=== PATIENT | male | born 1990 | race Caucasian/White ===

== ENCOUNTER 2018-06-12 08:30 | Emergency (ER) | payer OTHER ==
--- NOTE | 2018-06-12 08:53 | ED Physician Documentation ---
History of Present Illness - Stated complaint Stated Complaint: SIDE PX/VOMITING BLOOD IN URINE - Chief complaint Chief Complaint: Abd Pain - History obtained from History obtained from: Patient - History of Present Illness Pain level max: 3 - Additonal information Additional information: Patient is a previously healthy 28-year-old male presenting with several days of worsening right-sided flank and lower abdominal pain associated with hematuria. Patient denies fever, chills, nausea, vomiting, or stool changes. Patient reports that he is otherwise been in his normal state of health except for mild cold symptoms. Patient states that symptoms are waxing and waning. No particular worsening or improving Factors noted. Review of Systems Constitutional: denies: Fever GI: reports: Abdominal Pain : reports: Hematuria PD PAST MEDICAL HISTORY - Past Medical History Past Medical History: Yes Derm: Eczema - Past Surgical History Past Surgical History: No - Present Medications Home Medications: Ambulatory Orders Medication Instructions Recorded Confirmed Hydrocodone/Acetaminophen [[place] 1 each PO Q4HR #15 tablet 06/12/18 5-325 Tablet] Ondansetron Odt [Zofran] 4 mg TL Q6H PRN #10 tablet 06/12/18 Tamsulosin HCl [Flomax] 0.4 mg PO DAILY #30 cap.er.24h 06/12/18 - Allergies Allergies/Adverse Reactions: Allergies Allergy/AdvReac Type Severity Reaction Status Date / Time codeine Allergy Hives Verified 06/12/18 08:52 - Social History Does the pt smoke?: No Smoking Status: Never smoker Does the pt drink ETOH?: No Does the pt have substance abuse?: No - Immunizations Immunizations are current?: Yes - POLST Patient has POLST: No PD ED PE NORMAL - General General: Alert and oriented X 3, No acute distress, Well developed/nourished - HEENT HEENT: Atraumatic - Cardiac Cardiac: RRR, No murmur - Respiratory Respiratory: No respiratory distress, Clear bilaterally - Abdomen Abdomen: Normal bowel sounds, Soft, Non tender, Non distended - Back Back: Other. No: No CVA TTP (Mild right CVA tenderness) - Derm Derm: Normal color, Warm and dry, No rash - Extremities Extremities: No deformity - Neuro Neuro: Alert and oriented X 3, No motor deficit, No sensory deficit - Psych Psych: Normal mood, Normal affect Results - Vitals Vitals: Vital Signs - 24 hr 06/12/18 06/12/18 08:50 09:45 Temperature 36.5 C Heart Rate 86 67 Respiratory 18 18 Rate Blood Pressure 146/94 H 132/93 H O2 Saturation 96 98 Oxygen O2 Source Room air - Labs Labs: Laboratory Tests 06/12/18 06/12/18 06/12/18 08:59 09:42 09:42 WBC 5.9 RBC 5.26 Hgb 14.2 Hct 42.1 MCV 80.1 MCH 26.9 L MCHC 33.6 RDW 14.6 Plt Count 190 MPV 8.4 Neut # (Auto) 4.0 Lymph # (Auto) 1.2 L [place] # (Auto) 0.4 Eos # (Auto) 0.2 Baso # (Auto) 0.1 Absolute Nucleated RBC 0.01 Nucleated RBC % 0.1 Sodium 137 Potassium 4.2 Chloride 103 Carbon Dioxide 27 Anion Gap 7.0 BUN 11 Creatinine 1.0 Estimated GFR (MDRD) 88 L Glucose 100 Calcium 9.2 Total Bilirubin 0.5 AST 31 ALT 43 Alkaline Phosphatase 67 Total Protein 7.8 Albumin 4.4 Globulin 3.4 Albumin/Globulin Ratio 1.3 Lipase 40 Urine Color YELLOW Urine Clarity SL. CLOUDY Urine pH 6.0 Ur Specific [place] 1.025 Urine Protein NEGATIVE Urine Glucose (UA) NEGATIVE Urine Ketones NEGATIVE Urine Occult Blood LARGE H Urine Nitrite NEGATIVE Urine Bilirubin NEGATIVE Urine Urobilinogen 0.2 (NORMAL) Ur Leukocyte Esterase NEGATIVE Urine RBC 11-25 H Urine WBC 0-3 Ur Squamous Epith Cells RARE Squamous Urine Bacteria None Seen Ur Microscopic Review INDICATED Urine Culture Comments NOT INDICATED PD MEDICAL DECISION MAKING - ED course Complexity details: reviewed results, re-evaluated patient, considered differential, d/w patient ED course: Most concerning for nephrolithiasis, UTI, but also consider other etiologies such as pyelonephritis, liver disease, appendicitis, gallbladder disease, small bowel obstruction, diverticulitis, AAA, but feel much less likely. Vital signs within normal limits upon arrival. Patient comfortable declined pain medication at this time. We will start IV fluid, as well as obtain urine and blood work samples. Also ordered CT imaging to further evaluate for likely kidney stone.Screening lab work and urinalysis returned relatively unremarkable except for presence of blood in the urine. No signs of infection or other complicating factors. CT imaging found evidence of nonobstructing stone on the right, as well as a small stone on the left. Stone on the right appears to be moving without issue. At this time, I feel the patient is safe to discharge home with appropriate pain and nausea medications, as well as Flomax. Patient can follow- up with his primary care physician and urology as an outpatient. Discussed results and recommendations with patient, who is comfortable with this discharge plan. Departure - Departure Disposition: 01 Home, Self Care Clinical Impression: Kidney stones Condition: Good Instructions: Kidney Stones Follow-Up: JULIA KAUFMAN [Primary Care Provider] - Within 3 Days Prescriptions: Hydrocodone/Acetaminophen [[place] 5-325 Tablet] 1 each PO Q4HR #15 tablet Ondansetron Odt [Zofran] 4 mg TL Q6H PRN #10 tablet PRN Reason: Nausea / Vomiting Tamsulosin HCl [Flomax] 0.4 mg PO DAILY #30 cap.er.24h Comments: Please use medications as prescribed to help control nausea, pain, and help with passage of kidney stones. Also recommend hydration and follow-up with your primary care physician next 2-3 days. If you continue to experience symptoms or other complications from kidney stones, recommend follow-up with urologist. If you have worsening symptoms or other concerns, always feel free to return to the ED as well.
[2018-06-12] MEDS ORDERED: SODIUM CHLORIDE 0.9% 1,000 ML IV ONE (09:09)
[2018-06-12 09:10] LABS: BILIRUBIN,URINE NEGATIVE (NEGATIVE); GLUCOSE, URINE (UA) NEGATIVE (NEGATIVE); KETONES,URINE (UA) NEGATIVE (NEGATIVE); LEUKOCYTE ESTERASE, URINE NEGATIVE (NEGATIVE); NITRITE,URINE NEGATIVE (NEGATIVE); OCCULT BLOOD,URINE LARGE (NEGATIVE); PROTEIN,URINE NEGATIVE (NEGATIVE); UROBILINOGEN,URINE 0.2 (NORMAL) E.U./dL (NORMAL)
[2018-06-12 09:23] LABS: CLARITY,URINE SL. CLOUDY (CLEAR)
[2018-06-12 09:24] LABS: BACTERIA,URINE None Seen /HPF (None Seen); SQUAMOUS EPITHELIAL CELL,UR RARE Squamous (<= Few)
--- NOTE | 2018-06-12 09:49 | CT Report ---
Reason: right CVA and abd pain Procedure Date: 06/12/2018 Accession Number: [id number] / [id number] Procedure: CT - Abdomen/Pelvis WO CPT Code: FULL RESULT: EXAM: CT ABDOMEN AND PELVIS (CT KUB) EXAM DATE: 06/12/2018 09:26 AM. CLINICAL HISTORY: Right CVA and abd pain. COMPARISONS: None. TECHNIQUE: Routine axial helical CT imaging was performed through the abdomen and pelvis without IV contrast. Reconstructions: Coronal and sagittal. In accordance with CT protocol optimization, one or more of the following dose reduction techniques were utilized for this exam: automated exposure control, adjustment of mA and/or KV based on patient size, or use of iterative reconstructive technique. FINDINGS: Lung Bases: Unremarkable. Right Kidney/Ureter: No intrarenal calculi. There is a 3 mm calculus at the proximal ureter near the UPJ with associated mild hydronephrosis. No perinephric stranding. No ureteral dilatation distal to the calculus. Left Kidney/Ureter: 5 mm nonobstructing intrarenal calculus. No hydronephrosis, hydroureter or perinephric stranding. Other Solid Organs: Noncontrast images of the solid organs are grossly unremarkable. Gallbladder/Bile Ducts: Unremarkable. Peritoneal Cavity: No free fluid, free air or glo adenopathy. Bowel is grossly unremarkable. The appendix appears normal. Pelvic Organs: No bladder stones or wall thickening. Noncontrast images of the visualized pelvic organs are unremarkable. Vasculature: Unremarkable. Other: None. IMPRESSION: 1. Proximal right ureteral 3 mm calculus near the UPJ with associated mild right hydronephrosis. 2. Nonobstructing left renal 5 mm calculus. RADIA
[2018-06-12 09:51] LABS: BASOPHILS # (AUTO) 0.1 10^3/uL (0.0-0.1); BASOPHILS % (AUTO) 1.9 %; EOSINOPHILS # (AUTO) 0.2 10^3/uL (0.0-0.7); EOSINOPHILS % (AUTO) 3.9 %; HGB - HEMOGLOBIN 14.2 g/dL (14.0-18.0); LYMPHOCYTES # (AUTO) 1.2 10^3/uL (1.5-3.5); LYMPHOCYTES % (AUTO) 19.8 %; MEAN CORPUSCULAR HEMOGLOBIN 26.9 pg (27.0-31.0); MEAN CORPUSCULAR HGB CONC 33.6 g/dL (32.0-36.0); MEAN CORPUSCULAR VOLUME 80.1 fL (80.0-94.0); MEAN PLATELET VOLUME 8.4 fL (7.4-11.4); MONOCYTES # (AUTO) 0.4 10^3/uL (0.0-1.0); MONOCYTES % (AUTO) 6.4 %; PLT - PLATELET COUNT 190 10^3/uL (130-450); RED BLOOD COUNT 5.26 10^6/uL (4.70-6.10); RED CELL DISTRIBUTION WIDTH 14.6 % (12.0-15.0); WHITE BLOOD COUNT 5.9 x10^3/uL (4.8-10.8)
[2018-06-12 10:08] LABS: ALBUMIN 4.4 g/dL (3.2-5.5); ALBUMIN/GLOBULIN RATIO 1.3 (1.0-2.2); BILIRUBIN,TOTAL 0.5 mg/dL (0.2-1.0); CALCIUM 9.2 mg/dL (8.5-10.3); TOTAL PROTEIN 7.8 g/dL (6.7-8.2)
[2018-06-12 10:52] VITALS: BP 140/94
== END 2018-06-12 10:52 | disposition home or self-care (01) ==
LOC: ED 08:30
DX: N13.2 Hydronephrosis with renal and ureteral calculous obstruction (principal)
CPT/HCPCS: 36415; 74176; 80053; 81001; 81003; 83690; 85025; 87086; 96360; 99283; 99284

== ENCOUNTER 2018-07-02 17:47 | Emergency (ER) | payer OTHER ==
[2018-07-02 18:50] LABS: BILIRUBIN,URINE NEGATIVE (NEGATIVE); GLUCOSE, URINE (UA) NEGATIVE (NEGATIVE); KETONES,URINE (UA) 15 mg/dL (NEGATIVE); LEUKOCYTE ESTERASE, URINE NEGATIVE (NEGATIVE); NITRITE,URINE NEGATIVE (NEGATIVE); OCCULT BLOOD,URINE TRACE-INTA (NEGATIVE); PROTEIN,URINE NEGATIVE (NEGATIVE); UROBILINOGEN,URINE 0.2 (NORMAL) E.U./dL (NORMAL)
[2018-07-02 18:50] LABS: BASOPHILS # (AUTO) 0.1 10^3/uL (0.0-0.1); BASOPHILS % (AUTO) 0.7 %; EOSINOPHILS # (AUTO) 0.1 10^3/uL (0.0-0.7); EOSINOPHILS % (AUTO) 0.8 %; LYMPHOCYTES # (AUTO) 0.9 10^3/uL (1.5-3.5); LYMPHOCYTES % (AUTO) 8.2 %; MEAN CORPUSCULAR HEMOGLOBIN 26.5 pg (27.0-31.0); MEAN CORPUSCULAR HGB CONC 33.2 g/dL (32.0-36.0); MEAN CORPUSCULAR VOLUME 79.8 fL (80.0-94.0); MEAN PLATELET VOLUME 8.2 fL (7.4-11.4); MONOCYTES # (AUTO) 0.5 10^3/uL (0.0-1.0); MONOCYTES % (AUTO) 4.9 %; NEUTROPHILS # (AUTO) 9.2 10^3/uL (1.5-6.6); NEUTROPHILS % (AUTO) 85.4 %; PLT - PLATELET COUNT 206 10^3/uL (130-450); RED BLOOD COUNT 5.27 10^6/uL (4.70-6.10); RED CELL DISTRIBUTION WIDTH 14.9 % (12.0-15.0); WHITE BLOOD COUNT 10.8 x10^3/uL (4.8-10.8)
[2018-07-02 18:52] LABS: ALBUMIN 4.6 g/dL (3.2-5.5); ALBUMIN/GLOBULIN RATIO 1.4 (1.0-2.2); BILIRUBIN,TOTAL 0.8 mg/dL (0.2-1.0); CALCIUM 9.3 mg/dL (8.5-10.3); CREATININE 1.5 mg/dL (0.6-1.2); TOTAL PROTEIN 7.9 g/dL (6.7-8.2)
[2018-07-02 19:05] LABS: CLARITY,URINE CLEAR (CLEAR)
[2018-07-02] MEDS ORDERED: ONDANSETRON 4 MG/2 ML VIAL IVP STA (19:19)
[2018-07-02] MEDS ORDERED: SODIUM CHLORIDE 0.9% 2,000 ML IV ONE (19:19)
[2018-07-02] MEDS ORDERED: HYDROmorphone 1 MG/ML CARPUJECT IVP STA (19:19)
--- NOTE | 2018-07-02 19:21 | ED Physician Documentation ---
PD HPI ABD PAIN - Stated complaint Stated Complaint: ABD PX N/V - Chief complaint Chief Complaint: Abd Pain - History obtained from History obtained from: Patient - History of Present Illness Timing - onset: Today (Seen here about 3 weeks ago and had a 3 mm right proximal ureteral stone. He has had on and off persistent pain since with worsening today. It has not moved at all. He has been nauseous today and vomited despite taking Tylenol, hydrocodone and Zofran.) Review of Systems Constitutional: denies: Fever, Chills Cardiac: denies: Chest pain / pressure, Palpitations Respiratory: denies: Dyspnea, Cough PD PAST MEDICAL HISTORY - Past Medical History Derm: Eczema - Past Surgical History Past Surgical History: No - Present Medications Home Medications: Ambulatory Orders Medication Instructions Recorded Confirmed Hydrocodone/Acetaminophen [[place] 1 each PO Q4HR #15 tablet 06/12/18 07/02/18 5-325 Tablet] Ondansetron Odt [Zofran] 4 mg TL Q6H PRN #10 tablet 06/12/18 07/02/18 Tamsulosin HCl [Flomax] 0.4 mg PO DAILY #30 cap.er.24h 06/12/18 07/02/18 - Allergies Allergies/Adverse Reactions: Allergies Allergy/AdvReac Type Severity Reaction Status Date / Time codeine Allergy Hives Verified 07/02/18 18:09 - Social History Does the pt smoke?: No Smoking Status: Never smoker Does the pt drink ETOH?: No Does the pt have substance abuse?: No - Immunizations Immunizations are current?: Yes - POLST Patient has POLST: No PD ED PE NORMAL - Vitals Vital signs reviewed: Yes - General General: Alert and oriented X 3, No acute distress - Abdomen Abdomen: Soft, Non tender - Back Back: No CVA TTP - Derm Derm: Normal color, Warm and dry - Extremities Extremities: No edema, No calf tenderness / cord - Neuro Neuro: Alert and oriented X 3, Normal speech Results - Vitals Vitals: Vital Signs - 24 hr 07/02/18 07/02/18 18:06 19:40 Temperature 36.6 C Heart Rate 100 98 Respiratory 20 18 Rate Blood Pressure 142/91 H 129/93 H O2 Saturation 98 100 Oxygen O2 Source Room air - Labs Labs: Laboratory Tests 07/02/18 07/02/18 07/02/18 18:30 18:35 18:35 WBC 10.8 RBC 5.27 Hgb 14.0 Hct 42.1 MCV 79.8 L MCH 26.5 L MCHC 33.2 RDW 14.9 Plt Count 206 MPV 8.2 Neut # (Auto) 9.2 H Lymph # (Auto) 0.9 L [place] # (Auto) 0.5 Eos # (Auto) 0.1 Baso # (Auto) 0.1 Absolute Nucleated RBC 0.01 Nucleated RBC % 0.0 Sodium 137 Potassium 4.0 Chloride 102 Carbon Dioxide 26 Anion Gap 9.0 BUN 16 Creatinine 1.5 H Estimated GFR (MDRD) 55 L Glucose 111 H Calcium 9.3 Total Bilirubin 0.8 AST 45 H ALT 63 H Alkaline Phosphatase 69 Total Protein 7.9 Albumin 4.6 Globulin 3.3 Albumin/Globulin Ratio 1.4 Lipase 29 Urine Color YELLOW Urine Clarity CLEAR Urine pH 8.0 H Ur Specific [place] 1.020 Urine Protein NEGATIVE Urine Glucose (UA) NEGATIVE Urine Ketones 15 H Urine Occult Blood [place]ACE[place] Urine Nitrite NEGATIVE Urine Bilirubin NEGATIVE Urine Urobilinogen 0.2 (NORMAL) Ur Leukocyte Esterase NEGATIVE Ur Microscopic Review NOT INDICATED Urine Culture Comments NOT INDICATED PD MEDICAL DECISION MAKING - ED course ED course: 28-year-old gentleman with persistent renal colic. Blood work shows mild elevation of creatinine and liver enzymes. Urinalysis is unremarkable except for ketonuria. He is administered 2 L of IV fluids Dilaudid and Zofran. At this point despite the relatively small stone it seems likely he will need to follow-up with urologist and was given a copy of the CAT scan from 3 weeks ago. Departure - Departure Disposition: Home, Self Care Clinical Impression: Renal colic Condition: Good Record reviewed to determine appropriate education?: Yes Instructions: ED Stone Renal W Colic Comments: Continue the Flomax. As discussed the pain medication will likely work with you need to take it a little earlier. Follow-up with your doctor on Monday, at this point for likely referral to a urologist given the persistent symptoms. The copy of the CAT scan on CD with you. Return for new or worsening symptoms.
[2018-07-02 20:28] VITALS: BP 133/87
== END 2018-07-02 20:34 | disposition home or self-care (01) ==
LOC: ED 17:47
DX: N23 Unspecified renal colic (principal); R82.4 Acetonuria
CPT/HCPCS: 36415; 80053; 81003; 83690; 85025; 96361; 96374; 99283; J1170; 81001; 87086

== ENCOUNTER 2019-08-04 11:12 | Emergency (ER) | payer OTHER ==
--- NOTE | 2019-08-04 11:41 | ED Physician Documentation ---
PD HPI ABD PAIN - Stated complaint Stated Complaint: LT SIDE PX - Chief complaint Chief Complaint: Abd Pain - History obtained from History obtained from: Patient - History of Present Illness Timing - onset: How many hours ago (couple), Today Timing - duration: Hours (2-3) Timing - details: Abrupt onset, Still present Quality: Cramping, Aching, Pain Location: LLQ Radiation: Left flank Improved by: No: Laying still, Position Worsened by: No: Moving, Breathing, Position, Palpation Associated symptoms: Nausea, Hematuria. No: Fever, Diarrhea, Constipation, Dysuria Similar symptoms before: Diagnosis (kidney stone couple years ago right side with 5 mm stone in left kidney incidentally noted at the time. Saw urologist in follow up and were just going to watch on current stone on left.) Recently seen: Not recently seen Review of Systems Constitutional: denies: Fever, Chills, Myalgias Nose: denies: Rhinorrhea / runny nose, Congestion Throat: denies: Sore throat Respiratory: denies: Cough GI: reports: Abdominal Pain, Nausea. denies: Vomiting, Constipation, Diarrhea : reports: Hematuria (this morning). denies: Dysuria Skin: denies: Abrasion (s), Laceration (s) Neurologic: denies: Near syncope PD PAST MEDICAL HISTORY - Past Medical History Cardiovascular: None Respiratory: None Neuro: None Endocrine/Autoimmune: None : Kidney stones Derm: Eczema - Past Surgical History Past Surgical History: No - Present Medications Home Medications: Ambulatory Orders Medication Instructions Recorded Confirmed Naproxen 500 mg PO BID #20 tablet 08/04/19 Ondansetron Odt [Zofran] 4 mg TL Q6H PRN #20 tablet 08/04/19 Oxycodone HCl/Acetaminophen 1 each PO Q6H PRN #20 tablet 08/04/19 [Percocet 5-325 mg Tablet] Tamsulosin [Flomax] 0.4 mg PO DAILY #7 capsule 08/04/19 dexAMETHasone [Decadron] 4 mg PO DAILY #5 tablet 08/04/19 - Allergies Allergies/Adverse Reactions: Allergies Allergy/AdvReac Type Severity Reaction Status Date / Time codeine Allergy Hives Verified 08/04/19 11:15 - Social History Does the pt smoke?: No Smoking Status: Never smoker Does the pt drink ETOH?: No Does the pt have substance abuse?: No - Immunizations Immunizations are current?: Yes - POLST Patient has POLST: No PD ED PE NORMAL - Vitals Vital signs reviewed: Yes - General General: Alert and oriented X 3, Well developed/nourished, Other (appears uncomfortable due to left sided pain) - Cardiac Cardiac: RRR, No murmur - Respiratory Respiratory: Clear bilaterally - Abdomen Abdomen: Normal bowel sounds, Soft, Non tender, Non distended, No organomegaly - Back Back: No spinal TTP, Other (left CVA tenderness) - Derm Derm: Normal color, Warm and dry - Extremities Extremities: Normal ROM s pain, No edema, No calf tenderness / cord - Neuro Neuro: Alert and oriented X 3, No motor deficit, Normal speech Results - Vitals Vitals: Vital Signs - 24 hr 08/04/19 08/04/19 08/04/19 11:16 13:18 13:46 Temperature 36.5 C Heart Rate 104 H 80 77 Respiratory 17 19 17 Rate Blood Pressure 146/86 H 106/71 118/83 H O2 Saturation 98 96 98 Oxygen O2 Source Room air - Labs Labs: Laboratory Tests 08/04/19 11:20 Urine Color YELLOW Urine Clarity HAZ[place] Urine pH 6.5 Ur Specific [place] 1.020 Urine Protein NEGATIVE Urine Glucose (UA) NEGATIVE Urine Ketones NEGATIVE Urine Occult Blood LARGE H Urine Nitrite NEGATIVE Urine Bilirubin NEGATIVE Urine Urobilinogen 0.2 (NORMAL) Ur Leukocyte Esterase NEGATIVE Urine RBC 11-25 H Urine WBC 0-3 Ur Squamous Epith Cells NONE SEEN Urine Bacteria Rare Ur Microscopic Review INDICATED Urine Culture Comments NOT INDICATED - Rads (name of study) KUB CT Radiology: Prelim report reviewed (right proximal ureteral 5 mm stone with moderate right hydroureter and kidney), See rad report PD MEDICAL DECISION MAKING - ED course Complexity details: reviewed results (5 mm stone in proximal left ureter with mod hydroureter. ), re-evaluated patient (improved quite a bit and declines further meds after initial meds. ), considered differential, d/w patient Departure - Departure Disposition: 01 Home, Self Care Clinical Impression: Left sided abdominal pain, Ureterolithiasis Condition: Stable Record reviewed to determine appropriate education?: Yes Instructions: ED Stone Renal W Colic Follow-Up: JULIA KAUFMAN [Primary Care Provider] - Prescriptions: dexAMETHasone [Decadron] 4 mg PO DAILY #5 tablet Naproxen 500 mg PO BID #20 tablet Ondansetron Odt [Zofran] 4 mg TL Q6H PRN #20 tablet PRN Reason: Nausea / Vomiting Oxycodone HCl/Acetaminophen [Percocet 5-325 mg Tablet] 1 each PO Q6H PRN #20 tablet PRN Reason: pain Tamsulosin [Flomax] 0.4 mg PO DAILY #7 capsule Comments: Stay well-hydrated. Naproxen anti-inflammatory twice daily and Flomax for ureteral spasms. Take these regularly as prescribed. Decadron for inflammation as well. Use Tylenol in addition if needed for pains mildly or the oxycodone if needed for worse pain. You can pretreat or concurrently treat with the ondansetron to help reduce nausea of the pain medicine. Call your urologist tomorrow to set up a follow-up appointment regarding the stone. Discharge Date/Time: 08/04/19 14:02
[2019-08-04] MEDS ORDERED: ONDANSETRON 4 MG/2 ML VIAL IVP STA (12:22)
[2019-08-04] MEDS ORDERED: HYDROmorphone 1 MG/ML CARPUJECT IVP STA (12:22)
[2019-08-04] MEDS ORDERED: KETOROLAC 30 MG/ML VIAL IVP STA (12:22)
[2019-08-04 12:33] LABS: BILIRUBIN,URINE NEGATIVE (NEGATIVE); GLUCOSE, URINE (UA) NEGATIVE (NEGATIVE); KETONES,URINE (UA) NEGATIVE (NEGATIVE); LEUKOCYTE ESTERASE, URINE NEGATIVE (NEGATIVE); NITRITE,URINE NEGATIVE (NEGATIVE); OCCULT BLOOD,URINE LARGE (NEGATIVE); PH,URINE 6.5 PH (5.0-7.5); PROTEIN,URINE NEGATIVE (NEGATIVE); UROBILINOGEN,URINE 0.2 (NORMAL) E.U./dL (NORMAL)
[2019-08-04 12:34] LABS: CLARITY,URINE HAZY (CLEAR)
[2019-08-04 12:37] LABS: BACTERIA,URINE Rare /HPF (None Seen); SQUAMOUS EPITHELIAL CELL,UR NONE SEEN (<= Few)
--- NOTE | 2019-08-04 13:13 | CT Report ---
Reason: left flank and abd pain today Procedure Date: 08/04/2019 Accession Number: [id number] / [id number] Procedure: CT - Abdomen/Pelvis WO CPT Code: Final Report FULL RESULT: EXAM: CT ABDOMEN AND PELVIS (CT KUB) EXAM DATE: 08/04/2019 12:55 PM. CLINICAL HISTORY: Left flank and abd pain today. COMPARISONS: ABDOMEN/PELVIS W/O 06/12/2018 9:21 AM. TECHNIQUE: Routine axial helical CT imaging was performed through the abdomen and pelvis without IV contrast. Reconstructions: Coronal and sagittal. In accordance with CT protocol optimization, one or more of the following dose reduction techniques were utilized for this exam: automated exposure control, adjustment of mA and/or KV based on patient size, or use of iterative reconstructive technique. FINDINGS: Lung Bases: Unremarkable. Right Kidney/Ureter: No stones, hydronephrosis, or hydroureter. No perinephric fat stranding. Left Kidney/Ureter: There is mild hydroureteronephrosis secondary to a proximal ureteric stone measuring 5.7 mm. Other Solid Organs: Noncontrast images of the solid organs are grossly unremarkable. Gallbladder/Bile Ducts: Unremarkable. Peritoneal Cavity: No free fluid, free air or glo adenopathy. Bowel is grossly unremarkable. Normal appendix is visualized. Pelvic Organs: No bladder stones or wall thickening. Noncontrast images of the visualized pelvic organs are unremarkable. Vasculature: Unremarkable. Other: Probable bone island seen in the right ischial bone, stable from previous exam. IMPRESSION: 1. Mild left-sided hydroureteronephrosis secondary to a proximal ureter stone measuring up to 6 mm. 2. Unremarkable right urinary collecting system. RADIA
[2019-08-04 13:47] VITALS: BP 118/83
== END 2019-08-04 14:02 | disposition home or self-care (01) ==
LOC: ED 11:12
DX: N13.2 Hydronephrosis with renal and ureteral calculous obstruction (principal)
CPT/HCPCS: 74176; 81001; 96374; 96375; 99284; J1170; 81003; 87086

== ENCOUNTER 2019-08-24 03:56 | Emergency (ER) | payer OTHER ==
--- NOTE | 2019-08-24 04:09 | ED Physician Documentation ---
PD HPI ABD PAIN - Stated complaint Stated Complaint: L FLANK PX - Chief complaint Chief Complaint: Abd Pain - History obtained from History obtained from: Patient - History of Present Illness Timing - onset: How many weeks ago (3) Timing - details: Intermittant, Waxing and waning Pain level max: 8 Pain level now: 6 Quality: Pain Location: Other (left flank) Radiation: Left flank Improved by: Other (no ameliorating factors) Worsened by: Other (no exacerbating factors) Associated symptoms: Nausea. No: Fever, Vomiting, Diarrhea, Constipation, Dysuria, Hematuria Recently seen: Emergency Dept (T+R 08/03 for same pain, 6mm proximal left ureteral calculus with mild hydronephrosis noted at that time. Returns due to recurrent episodes of left flank pain over past week. Pain was adequately controlled with percocet, but he has run out of this medication, along with the flomax and zofran. Has upcoming appointment with urology beginning of next week) Review of Systems Constitutional: denies: Fever, Chills, Sweats Cardiac: reports: Reviewed and negative Respiratory: reports: Reviewed and negative GI: reports: Abdominal Pain (left flank), Nausea. denies: Vomiting, Constipation, Diarrhea : denies: Dysuria, Frequency, Hematuria PD PAST MEDICAL HISTORY - Past Medical History Past Medical History: Yes Cardiovascular: None Respiratory: None Neuro: None Endocrine/Autoimmune: None GI: None : Kidney stones HEENT: None Psych: None Musculoskeletal: None Derm: Eczema - Past Surgical History Past Surgical History: No - Present Medications Home Medications: Ambulatory Orders Medication Instructions Recorded Confirmed Naproxen 500 mg PO BID #20 tablet 08/04/19 Ondansetron Odt [Zofran] 4 mg TL Q6H PRN #20 tablet 08/04/19 Oxycodone HCl/Acetaminophen 1 each PO Q6H PRN #20 tablet 08/04/19 [Percocet 5-325 mg Tablet] Tamsulosin [Flomax] 0.4 mg PO DAILY #7 capsule 08/04/19 dexAMETHasone [Decadron] 4 mg PO DAILY #5 tablet 08/04/19 Ondansetron Odt [Zofran Odt] 4 mg TL Q6H PRN #14 tablet 08/24/19 Tamsulosin [Flomax] 0.4 mg PO DAILY #7 capsule 05/30/20 oxyCODONE [Roxicodone] 5 - 10 mg PO Q6H PRN #20 tablet 08/24/19 - Allergies Allergies/Adverse Reactions: Allergies Allergy/AdvReac Type Severity Reaction Status Date / Time codeine Allergy Hives Verified 08/24/19 04:06 - Social History Does the pt smoke?: No Smoking Status: Never smoker Does the pt drink ETOH?: No Does the pt have substance abuse?: No - Immunizations Immunizations are current?: Yes - POLST Patient has POLST: No PD ED PE NORMAL - Vitals Vital signs reviewed: Yes - General General: Alert and oriented X 3, Well developed/nourished, Other (waxing and waning obvious painful distress) - HEENT HEENT: Moist mucous membranes - Cardiac Cardiac: RRR, No murmur - Respiratory Respiratory: No respiratory distress, Clear bilaterally - Abdomen Abdomen: Normal bowel sounds, Soft, Non tender, Non distended - Back Back: No CVA TTP - Derm Derm: No rash Results - Vitals Vitals: Vital Signs - 24 hr 08/24/19 08/24/19 08/24/19 04:04 04:09 04:53 Temperature 36.8 C Heart Rate 82 73 Respiratory 17 17 17 Rate Blood Pressure 140/104 H 122/85 H O2 Saturation 98 98 08/24/19 08/24/19 05:01 05:53 Temperature Heart Rate 65 67 Respiratory 16 16 Rate Blood Pressure 131/91 H O2 Saturation 99 98 Oxygen O2 Source Room air - Labs Labs: Laboratory Tests 08/24/19 08/24/19 08/24/19 04:05 04:15 04:15 WBC 7.5 RBC 5.22 Hgb 13.9 L Hct 43.0 MCV 82.4 MCH 26.6 L MCHC 32.3 RDW 13.8 Plt Count 215 MPV 9.9 Neut # (Auto) 4.8 Lymph # (Auto) 1.7 [place] # (Auto) 0.6 Eos # (Auto) 0.4 Baso # (Auto) 0.1 Absolute Nucleated RBC 0.00 Nucleated RBC % 0.0 Sodium 136 Potassium 4.1 Chloride 101 Carbon Dioxide 26 Anion Gap 9.0 BUN 17 Creatinine 1.4 H Estimated GFR (MDRD) 59 L Glucose 110 H Calcium 9.1 Total Bilirubin 0.4 AST 29 ALT 40 Alkaline Phosphatase 59 Total Protein 8.1 Albumin 4.2 Globulin 3.9 Albumin/Globulin Ratio 1.1 Lipase 31 Urine Color YELLOW Urine Clarity CLEAR Urine pH 5.5 Ur Specific [place] 1.020 Urine Protein NEGATIVE Urine Glucose (UA) NEGATIVE Urine Ketones NEGATIVE Urine Occult Blood LARGE H Urine Nitrite NEGATIVE Urine Bilirubin NEGATIVE Urine Urobilinogen 0.2 (NORMAL) Ur Leukocyte Esterase NEGATIVE Urine RBC 11-25 H Urine WBC 0-3 Ur Squamous Epith Cells NONE SEEN Urine Bacteria None Seen Ur Microscopic Review INDICATED Urine Culture Comments NOT INDICATED - Rads (name of study) abdominal plain film xray Radiology: Prelim report reviewed, See rad report PD MEDICAL DECISION MAKING - ED course Complexity details: reviewed old records, reviewed results, re-evaluated romy ent, considered differential, d/w patient ED course: excellent symptomatic relief achieved with toradol 30mg IV, dilaudid 1 mg IV, and zofran 4 mg IV. On reevaluation, he was in NAD, AAOx3, and declined further medication in ED. Departure - Departure Disposition: 01 Home, Self Care Clinical Impression: Renal colic Condition: Good Instructions: ED Stone Renal W Colic Prescriptions: Ondansetron Odt [Zofran Odt] 4 mg TL Q6H PRN #14 tablet PRN Reason: Nausea / Vomiting oxyCODONE [Roxicodone] 5 - 10 mg PO Q6H PRN #20 tablet PRN Reason: Pain Tamsulosin [Flomax] 0.4 mg PO DAILY #7 capsule Comments: Follow up with your urologist Monday as scheduled Discharge Date/Time: 08/24/19 06:02
[2019-08-24 04:13] LABS: BILIRUBIN,URINE NEGATIVE (NEGATIVE); GLUCOSE, URINE (UA) NEGATIVE (NEGATIVE); KETONES,URINE (UA) NEGATIVE (NEGATIVE); LEUKOCYTE ESTERASE, URINE NEGATIVE (NEGATIVE); NITRITE,URINE NEGATIVE (NEGATIVE); OCCULT BLOOD,URINE LARGE (NEGATIVE); PH,URINE 5.5 PH (5.0-7.5); PROTEIN,URINE NEGATIVE (NEGATIVE); UROBILINOGEN,URINE 0.2 (NORMAL) E.U./dL (NORMAL)
[2019-08-24 04:14] LABS: CLARITY,URINE CLEAR (CLEAR)
[2019-08-24 04:19] LABS: BACTERIA,URINE None Seen /HPF (None Seen); SQUAMOUS EPITHELIAL CELL,UR NONE SEEN (<= Few)
[2019-08-24] MEDS ORDERED: ONDANSETRON 4 MG/2 ML VIAL IVP STA (04:23)
[2019-08-24] MEDS ORDERED: KETOROLAC 30 MG/ML VIAL IVP STA (04:24)
[2019-08-24] MEDS ORDERED: HYDROmorphone 1 MG/ML CARPUJECT IVP STA (04:24)
[2019-08-24 04:30] LABS: BASOPHILS # (AUTO) 0.1 10^3/uL (0.0-0.1); BASOPHILS % (AUTO) 0.8 %; EOSINOPHILS # (AUTO) 0.4 10^3/uL (0.0-0.7); EOSINOPHILS % (AUTO) 5.2 %; HGB - HEMOGLOBIN 13.9 g/dL (14.0-18.0); LYMPHOCYTES # (AUTO) 1.7 10^3/uL (1.5-3.5); LYMPHOCYTES % (AUTO) 22.8 %; MEAN CORPUSCULAR HEMOGLOBIN 26.6 pg (27.0-31.0); MEAN CORPUSCULAR HGB CONC 32.3 g/dL (32.0-36.0); MEAN CORPUSCULAR VOLUME 82.4 fL (80.0-94.0); MEAN PLATELET VOLUME 9.9 fL (7.4-11.4); MONOCYTES # (AUTO) 0.6 10^3/uL (0.0-1.0); MONOCYTES % (AUTO) 7.6 %; NEUTROPHILS # (AUTO) 4.8 10^3/uL (1.5-6.6); NEUTROPHILS % (AUTO) 63.2 %; PLT - PLATELET COUNT 215 10^3/uL (130-450); RED BLOOD COUNT 5.22 10^6/uL (4.70-6.10); RED CELL DISTRIBUTION WIDTH 13.8 % (12.0-15.0); WHITE BLOOD COUNT 7.5 x10^3/uL (4.8-10.8)
[2019-08-24 04:39] LABS: ALBUMIN 4.2 g/dL (3.2-5.5); ALBUMIN/GLOBULIN RATIO 1.1 (1.0-2.2); BILIRUBIN,TOTAL 0.4 mg/dL (0.2-1.0); CALCIUM 9.1 mg/dL (8.5-10.3); CREATININE 1.4 mg/dL (0.6-1.2); TOTAL PROTEIN 8.1 g/dL (6.7-8.2)
--- NOTE | 2019-08-24 05:06 | XRAY Report ---
Reason: left flank pain Procedure Date: 08/24/2019 Accession Number: [id number] / [id number] Procedure: XR - Abdomen 1 View X-Ray CPT Code: 62725 Final Report FULL RESULT: EXAM: ABDOMEN RADIOGRAPHY EXAM DATE: 08/24/2019 04:55 AM. CLINICAL HISTORY: Left flank pain. COMPARISON: ABDOMEN/PELVIS W/O 08/04/2019 12:46 PM. TECHNIQUE: 1 view. FINDINGS: Bowel Gas Pattern: Within normal limits. No dilated loops. Other: Previously seen 6 mm left ureteral stone may now be in the distal ureter. IMPRESSION: Previously seen 6 mm left ureteral stone may now be in the distal ureter. RADIA
[2019-08-24] MEDS ORDERED: TAMSULOSIN 0.4 MG CAPSULE PO STA (05:44)
[2019-08-24] MEDS ORDERED: oxyCODONE/ACET 5/325 Prepack 4 PO STA (05:44)
[2019-08-24 05:55] VITALS: BP 131/91
== END 2019-08-24 06:02 | disposition home or self-care (01) ==
LOC: ED 03:56
DX: N20.1 Calculus of ureter (principal)
CPT/HCPCS: 36415; 74018; 80053; 81001; 83690; 85025; 96374; 99284; A9270; J1170; 81003; 87086